=== PATIENT | female | born 1955 | race Caucasian/White ===

== ENCOUNTER 2022-02-02 10:34 | Inpatient (IN) | payer MEDICARE ==
[~2022-02-02] VITALS: Ht 160 cm; Wt 111.1 kg
[2022-02-02 10:35] VITALS: BP_SYST 141
--- NOTE | 2022-02-02 10:35 | NUR ---
Placed in room 4 . Placed on groundwater monitoring technician, blood pressure machine and pulse oximeter. To gown for exam. Side rails up.
--- NOTE | 2022-02-02 10:40 | NUR ---
PT BIBA FROM HOME FOR C/O ALTERED AND UNRESPONSIVE. PT'S LKWT PER EMS 2330 LAST NIGHT. PT HAS HX OF CVA WITH BLE WEAKNESS. PT ARRIVES AWAKE BUT UNRESPONSIVE TO COMMANDS OR VERBAL QUESTIONS. SHE DOES RESPOND TO PAIN. PT'S VSS HOWEVER PT IS HYPERTENSIVE ON ARRIVAL 147/100
[2022-02-02] MEDS ORDERED: NALOXONE HCL 2 MG/2 ML SYR IVP ONE (10:45)
--- NOTE | 2022-02-02 10:45 | NUR ---
ER DR. COLIN EXAMINING PT
--- NOTE | 2022-02-02 11:00 | NUR ---
PT ARRIVES WITH #18 TO LAC, PATENT
[2022-02-02 11:22] LABS: BASOPHILS % (AUTO) 0.6 % (0.0-2.0); EOSINOPHILS # (AUTO) 0.1 K/uL (0.0-0.4); EOSINOPHILS % (AUTO) 0.8 % (0.0-4.0); HEMATOCRIT 44.4 % (36-48); LYMPHOCYTES # (AUTO) 1.1 K/uL (1.0-5.5); MEAN CORPUSCULAR HEMOGLOBIN 31 pg (27-31); MEAN CORPUSCULAR HGB CONC 34 % (32-36); MEAN CORPUSCULAR VOLUME 92 fL (79.0-98.0); MONOCYTES # (AUTO) 0.6 K/uL (0.0-1.0); MONOCYTES % (AUTO) 7.4 % (1.7-9.3); NEUTROPHILS # (AUTO) 6.1 K/uL (1.8-7.7); NEUTROPHILS % (AUTO) 77.2 % (40.0-70.0); PLATELET COUNT (AUTO) 300 K/uL (130-430); RED BLOOD CELL COUNT(AUTO) 4.82 MIL/uL (4.2-6.2); RED CELL DISTRIBUTION WIDTH 16.4 % (9.0-15.0); WHITE BLOOD COUNT (AUTO) 7.9 K/uL (4.8-10.8)
--- NOTE | 2022-02-02 11:30 | NUR ---
# 16 FR Smart catheter with use of sterile technique. Immediate return of 100 cc CLOUDY, YELLOW urine noted. Bedside drainage bag placed below level of bladder. Urine sample collected and sent to lab. Pt tolerated procedure WELL. Patient unable to toilet self.
--- NOTE | 2022-02-02 11:46 | NUR ---
PT YELLED OUT "HELP", UPON ENTERING THE ROOM, PT STATES SHE IS COLD AND WOULD LIKE SOME BLANKETS. PT ALSO STATES SHE IS IN THE HOSPITAL WHEN ASKED AND KNOWS HER NAME. STATES SHE LIVES WITH HER DAUGHTER AND IS BED BOUND AT HOME FROM PREVIOUS STROKE.
[2022-02-02 11:49] LABS: BILIRUBIN,URINE NEGATIVE (NEGATIVE); BLOOD, URINE 1+ (NEGATIVE); CLARITY/URINE CLEAR (CLEAR); COLOR,URINE YELLOW (YELLOW); GLUCOSE,URINE 3+ (NEGATIVE); KETONES,URINE NEGATIVE (NEGATIVE); LEUKOCYTE ESTERASE ,URINE 1+ (NEGATIVE); NITRITE, URINE NEGATIVE (NEGATIVE); PROTEIN URINE TRACE (NEGATIVE); UROBILINOGEN,URINE 0.2 (0.2-1.0)
[2022-02-02 11:53] LABS: ANION GAP 1 (5-15); CHLORIDE 101 mmol/L (98-107); GLUCOSE 227 mg/dL (70-99); POTASSIUM 3.1 mmol/L (3.5-5.1); UREA NITROGEN, BLOOD 15 mg/dL (8-21)
[2022-02-02 11:58] LABS: ACETAMINOPHEN 1 ug/mL (1-30); ALANINE AMINOTRANSFERASE 34 U/L (12-78); ALBUMIN 2.6 g/dL (3.4-4.8); ASPARTATE AMINOTRANSFERASE 17 U/L (10-37); TOTAL BILIRUBIN 0.7 mg/dL (0.0-1.0)
[2022-02-02 12:03] LABS: BACTERIA,URINE RARE /HPF (None Seen)
[2022-02-02 12:04] LABS: MUCUS,URINE None Seen /LPF (None Seen); YEAST,URINE Moderate /HPF (None Seen)
[2022-02-02 12:15] LABS: GFR AFRICAN AMERICAN 128 mL/min (>90)
[2022-02-02 12:18] LABS: ALCOHOL, BLOOD < 3 mg/dL (<10)
[2022-02-02 12:22] LABS: BARBITURATE, URINE NEGATIVE (NEG <=200); BENZODIAZEPINE, URINE NEGATIVE (NEG <=150); CANNABINOID, URINE NEGATIVE (NEG <=50); COCAINE, URINE NEGATIVE (NEG <=150); METHAMPHETAMINES SCREEN,URINE NEGATIVE (NEG <=500); OPIATE, URINE NEGATIVE (NEG <=100); PHENCYCLIDINE SCREEN,URINE NEGATIVE (NEG <=25); UR TRICYCLIC ANTIDEPRESSANTS NEGATIVE (NEG <=300); URINE AMPHETAMINE NEGATIVE (NEG <=500); URINE METHADONE NEGATIVE (NEG <=200); URINE OXYCODONE SCREEN NEGATIVE (NEG <=100); URINE PROPOXYPHENE SCREEN NEGATIVE (NEG <=300)
[2022-02-02] MEDS ORDERED: NACL 0.9% 1,000 ML IV ONE (12:45)
--- NOTE | 2022-02-02 14:12 | NUR ---
Admit bed requested Patient will be admitted to care of . Admitted to TELE unit. Diagnosis UTI, ALOC Inpatient (Yes or No) YES Observation (Yes or No) NO Orientation concerns or request close to nursing station (Yes or No) NO Covid Status NEGATIVE On vent or bipap NO Isolation requirements NO Needs a sitter NO From Home (Yes or if No enter name of facility) HOME Requires Dialysis (Yes or No) NO Med Rec Completed (Yes of No) MEDS UNKNOWN AT THIS TIME
[2022-02-02] MEDS ORDERED: NACL 0.9% 1,000 ML IV SCH (14:15)
[2022-02-02] MEDS ORDERED: PIPERACILLIN/TAZO 3.375 GM in NS 50 ML IV ONE (14:15)
[2022-02-02] MEDS ORDERED: PIPERACILLIN/TAZOBACTAM 3.375 GM/VIAL (ZOSYN) IV ONE ×2 (14:20)
[2022-02-02 15:45] VITALS: BP_SYST 118
--- NOTE | 2022-02-02 16:10 | NUR ---
Patient will be admitted to care of Kit RN. Admitted to Tele unit. Will go to room 106B. Belongings list completed. Complete and up to date summary report printed. SBAR report to be given at bedside with opportunity for questions.
--- NOTE | 2022-02-02 16:15 | NUR ---
ADMISSION: PATIENT ADMITTED TO ROOM 106N FROM ER. PATIENT IS AAOX4 BUT DROWSY/SLEEPY. ABLE TO MAKE NEEDS KNOWN. EXPLAINED POC AND PATIENT VERBALIZED UNDERSTANDING. DENIES PAIN OR DISTRESS AT THIS TIME. IV TO THE LAC 18G. F/C DRAINING TO GRAVITY. ON 3L NC AT 90%. ADMITTED FOR UTI, ALOC. HX, CVA, COPD, PNA, AND CHRONIC PAIN. PARALYZE IN BOTH LOWER EXT. SID TO MOVE BUA (WEAK). BED IN LOW AND LOCK POSITION. BED ALARM ON. CALL LIGHT WITHIN REACH. STABLE CONDITION AT THIS TIME.
[2022-02-02] MEDS ORDERED: PIPERACILLIN/TAZO 3.375/DEX-IS 50 ML IV SCH (18:00)
--- NOTE | 2022-02-02 18:50 | NUR ---
CLOSING NOTES: PATIENT IS RESTING IN BED QUIETLY, ASLEEP. NO ADDITIONAL DISTRESS NOTED. ALL NEEDS MET. STABLE AT THIS TIME.
--- NOTE | 2022-02-02 19:15 | NUR ---
OPENING NOTE RECEIVED REPORT FROM DAYSHIFT NURSE. PATIENT RECEIVED LYING IN BED. NO S/S OF ACUTE DISTRESS. BREATHING EVEN AND UNLABORED. HOB RAISED, NASAL CANULA ATTACHED PROPERLY, ON 3L OF OXYGEN. IVF INFUSING WELL, IV SITE PATENT, NO SIGNS OF INFILTRATION OR INFECTION NOTED. JACKSON ATTACHED, SECURED, AND DRAINING BY GRAVITY. CALL LIGHT WITH PATIENT. BED ALARM ON. BED IS LOCKED AND AT LOWEST POSITION. WILL CONTINUE TO MONITOR.
[2022-02-02] MEDS ORDERED: POTASSIUM CHLORIDE 20 MEQ TAB.PRT.SR PO ONE (19:30)
[2022-02-02 20:00] VITALS: BP_SYST 125
--- NOTE | 2022-02-02 20:10 | NUR ---
AT BEDSIDE DR COREY AT BEDSIDE, ASSESSING PATIENT.
[2022-02-02] MEDS ORDERED: LevALBUTEROL HCL 1.25 MG/0.5 ML *CONC.* VIAL.NEB (XOPENEX CONC.) INH PRN (20:30)
[2022-02-02 21:03] VITALS: BP_SYST 134
[2022-02-02] MEDS: LevALBUTEROL HCL 1.25 MG/0.5 ML *CONC.* VIAL.NEB (XOPENEX CONC.) INH SCH (21:20)
[2022-02-02] MEDS: INSULIN REGULAR, HUMAN 100 UNITS/ML, 10 ML VIAL (humuLIN R) SUBCUT PRN (21:48)
[2022-02-02] MEDS: ENOXAPARIN SODIUM 40 MG/0.4 ML SYRINGE SUBCUT SCH (21:48)
[2022-02-02] MEDS ORDERED: KCL 20 mEq in D5/0.45NS 1000mL 1,000 ML IV ONE (22:52)
[2022-02-02] MEDS ORDERED: CEFEPIME 1 GM/VIAL (MAXIPIME) ONE (22:53)
[2022-02-02] MEDS: KCL 20 mEq in D5/0.45NS 1000mL 1,000 ML IV SCH (23:43)
[2022-02-03] MEDS ORDERED: CEFEPIME 1 GM/DEXT-ISO-OSM 50 ML IV ONE
[2022-02-03] MEDS: LevALBUTEROL HCL 1.25 MG/0.5 ML *CONC.* VIAL.NEB (XOPENEX CONC.) INH SCH ×4 (01:22→20:07)
--- NOTE | 2022-02-03 05:22 | NUR ---
Consultation Paged Reason for Consultation: chf Was consult called: Y Person who was notified: Johanne Consulting Physician: Dr. Krishna Ordering Physician: Dr. Oliveira
[2022-02-03] MEDS: INSULIN REGULAR, HUMAN 100 UNITS/ML, 10 ML VIAL (humuLIN R) SUBCUT PRN ×4 (05:54→21:31)
[2022-02-03 06:13] VITALS: BP_SYST 128
--- NOTE | 2022-02-03 06:15 | NUR ---
CLOSING NOTE PATIENT IN BED, RESTING, EYES CLOSED, NO S/S OF ACUTE DISTRESS. BREATHING EVEN AND UNLABORED. HOB RAISED, NASAL CANULA ATTACHED PROPERLY, ON 2L OF OXYGEN. IVF INFUSING WELL, IV SITE PATENT, NO SIGNS OF INFILTRATION OR INFECTION NOTED. JACKSON ATTACHED, SECURED, AND DRAINING BY GRAVITY. ALL NEEDS MET THROUGHOUT SHIFT. FALL AND SAFETY PRECAUTIONS MAINTAINED THROUGHOUT SHIFT. WILL CONTINUE TO MONITOR UNTIL PATIENT CARE IS ENDORSED TO ONCOMING DAYSHIFT NURSE.
[2022-02-03 06:22] LABS: INR 0.9 (0.8-1.2); PROTHROMBIN TIME 9.7 SECS (9.5-12.5)
[2022-02-03 06:28] LABS: BASOPHILS % (AUTO) 0.5 % (0.0-2.0); EOSINOPHILS # (AUTO) 0.1 K/uL (0.0-0.4); EOSINOPHILS % (AUTO) 1.1 % (0.0-4.0); HEMATOCRIT 42.1 % (36-48); HEMOGLOBIN 14.2 g/dL (12.0-16.0); LYMPHOCYTES # (AUTO) 0.9 K/uL (1.0-5.5); MEAN CORPUSCULAR HEMOGLOBIN 31 pg (27-31); MEAN CORPUSCULAR HGB CONC 34 % (32-36); MEAN CORPUSCULAR VOLUME 93 fL (79.0-98.0); MONOCYTES # (AUTO) 0.5 K/uL (0.0-1.0); MONOCYTES % (AUTO) 5.9 % (1.7-9.3); NEUTROPHILS # (AUTO) 6.8 K/uL (1.8-7.7); NEUTROPHILS % (AUTO) 81.5 % (40.0-70.0); PLATELET COUNT (AUTO) 250 K/uL (130-430); RED BLOOD CELL COUNT(AUTO) 4.54 MIL/uL (4.2-6.2); RED CELL DISTRIBUTION WIDTH 16.1 % (9.0-15.0); WHITE BLOOD COUNT (AUTO) 8.4 K/uL (4.8-10.8)
[2022-02-03 06:52] LABS: CALCIUM 9.1 mg/dL (8.4-11.0); CREATININE 0.36 mg/dL (0.55-1.30); POTASSIUM 4.1 mmol/L (3.5-5.1)
--- NOTE | 2022-02-03 07:04 | NUR ---
received report from endorsing night stocker RN for continuity of care, patient lying on bed with an IVF of KCL 20 mEQ in D5 1/2 NS @ 60 ml/hr, vital signs taken and recorder blood pressure 125/67, heart rate 78, oxygen saturation 98 and temperature 97.6, Smart catheter in place, draining to gravity, no signs of acute distress noted at this time, fall and safety precaution in place, will continue to monitor.
[2022-02-03] MEDS: CEFEPIME 1 GM in D5W 50 ML IV SCH ×2 (09:11→21:26)
--- NOTE | 2022-02-03 09:30 | NUR ---
RT NOTE: 929 Patient decreased to 1lpm nasal cannula per Dr Krishna and per ABSunita. Recommended BiPAP. RN made aware of changes. Will continue to monitor pt. Addendum: 02/03/22 at 0950 by Leticia Michael RT Amended: Links added.
[2022-02-03 12:00] VITALS: BP_SYST 130
[2022-02-03] MEDS: KCL 20 mEq in D5/0.45NS 1000mL 1,000 ML IV SCH (13:25)
--- NOTE | 2022-02-03 14:58 | NUR ---
CONSULTATION PAGED/CALLED Reason for Consultation: [] COPD Person Who was Notified: [] LUZ MARIA Consulting Physician: [] DR GREENE Fighter Pilot Specialty: [] PULMO Ordering Physician: [] DR GILLESPIE
--- NOTE | 2022-02-03 16:13 | NUR ---
PICC LINE @ RIGHT UPPER EXTREMITY INSERTED @ 1613.
[2022-02-03 17:00] VITALS: BP_SYST 129
--- NOTE | 2022-02-03 19:12 | NUR ---
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
--- NOTE | 2022-02-03 19:15 | NUR ---
OPENING NOTE BEDSIDE REPORT RECEIVED FROM DAYSHIFT NURSE. PATIENT RECEIVED AWAKE, ALERT, NO S/S OF ACUTE DISTRESS. PATIENT DENIES PAIN. BREATHING EVEN AND UNLABORED. HOB RAISED. IVF INFUSING WELL, IV SITE PATENT, NO SIGNS OF INFILTRATION OR INFECTION NOTED. JACKSON ATTACHED, SECURED, AND DRAINING BY GRAVITY. CALL LIGHT WITH PATIENT. BED ALARM ON. BED IS LOCKED AND AT LOWEST POSITION. WILL CONTINUE TO MONITOR.
[2022-02-03 20:00] VITALS: BP_SYST 103
[2022-02-03] MEDS: ENOXAPARIN SODIUM 40 MG/0.4 ML SYRINGE SUBCUT SCH (21:27)
[2022-02-03] MEDS: METHYLPREDNISOLONE SOD SUCC 40 MG/ML VIAL IVP SCH (21:27)
--- NOTE | 2022-02-04 | NUR ---
CALLED DR JOSE MIGUEL LEE MADE AWARE, PATIENT IS AGITATED, CONTINUOUSLY YELLING, WANTING TO GO HOME, PICC LINE AND IV REMOVED. CATHETER FULLY INTACT, NO SIGNS OF ACTIVE BLEEDING. ORDERS GIVEN, WILL CARRY OUT.
[2022-02-04] MEDS ORDERED: HALOPERIDOL LACTATE 5 MG/ML VIAL IM ONE (00:45)
[2022-02-04] MEDS: LevALBUTEROL HCL 1.25 MG/0.5 ML *CONC.* VIAL.NEB (XOPENEX CONC.) INH SCH ×4 (01:00→20:23)
[2022-02-04] MEDS: KCL 20 mEq in D5/0.45NS 1000mL 1,000 ML IV SCH ×2 (06:17→22:24)
[2022-02-04] MEDS: METHYLPREDNISOLONE SOD SUCC 40 MG/ML VIAL IVP SCH ×3 (06:17→20:47)
[2022-02-04] MEDS: INSULIN REGULAR, HUMAN 100 UNITS/ML, 10 ML VIAL (humuLIN R) SUBCUT PRN ×4 (06:18→22:23)
[2022-02-04 06:19] LABS: CALCIUM 9.3 mg/dL (8.4-11.0); CREATININE 0.57 mg/dL (0.55-1.30); POTASSIUM 4.5 mmol/L (3.5-5.1)
[2022-02-04 06:33] LABS: ALBUMIN 2.3 g/dL (3.4-4.8); THYROID STIMULATING HORMONE 0.75 uIu/mL (0.36-3.74); TOTAL BILIRUBIN 0.3 mg/dL (0.0-1.0)
--- NOTE | 2022-02-04 06:42 | NUR ---
CLOSING NOTE PATIENT IN BED, RESTING, EYES CLOSED, NO S/S OF ACUTE DISTRESS. BREATHING EVEN AND UNLABORED. HOB RAISED, NASAL CANULA ATTACHED PROPERLY, ON 2L OF OXYGEN. IVF INFUSING WELL, IV SITE PATENT, NO SIGNS OF INFILTRATION OR INFECTION NOTED. SKIN WARM AND DRY TO TOUCH, NO SIGNS OF HYPOGLYCEMIA NOTED. JACKSON ATTACHED, SECURED, AND DRAINING BY GRAVITY. ALL NEEDS MET THROUGHOUT SHIFT. FALL, SAFETY PRECAUTIONS MAINTAINED THROUGHOUT SHIFT. WILL CONTINUE TO MONITOR UNTIL PATIENT CARE IS ENDORSED TO ONCOMING DAYSHIFT NURSE.
[2022-02-04 07:07] LABS: BASOPHILS % (AUTO) 0.4 % (0.0-2.0); EOSINOPHILS % (AUTO) 0.1 % (0.0-4.0); HEMOGLOBIN 13.9 g/dL (12.0-16.0); LYMPHOCYTES # (AUTO) 0.5 K/uL (1.0-5.5); LYMPHOCYTES % (AUTO) 7.5 % (20.5-51.5); MEAN CORPUSCULAR HEMOGLOBIN 32 pg (27-31); MEAN CORPUSCULAR HGB CONC 34 % (32-36); MEAN CORPUSCULAR VOLUME 94 fL (79.0-98.0); MONOCYTES # (AUTO) 0.2 K/uL (0.0-1.0); MONOCYTES % (AUTO) 2.4 % (1.7-9.3); NEUTROPHILS # (AUTO) 5.7 K/uL (1.8-7.7); NEUTROPHILS % (AUTO) 89.6 % (40.0-70.0); PLATELET COUNT (AUTO) 251 K/uL (130-430); RED BLOOD CELL COUNT(AUTO) 4.36 MIL/uL (4.2-6.2); WHITE BLOOD COUNT (AUTO) 6.4 K/uL (4.8-10.8)
--- NOTE | 2022-02-04 07:15 | NUR ---
Patient stable; asleep at this time with no distress noted.
--- NOTE | 2022-02-04 07:28 | NUR ---
Patient stable; resting comfortably in bed with breathing treatment in progress; Leticia, RT at bedside.
[2022-02-04] MEDS: CEFEPIME 1 GM in D5W 50 ML IV SCH ×2 (08:03→20:46)
--- NOTE | 2022-02-04 08:04 | NUR ---
Scheduled IV abx given per order. Patient eating breakfast with JIMENA Miranda at bedside.
[2022-02-04 08:05] VITALS: BP_SYST 105
--- NOTE | 2022-02-04 08:42 | NUR ---
Dietitian Recommendations * Continue mechanical soft diet as ordered * Staff to continue to provide feeding assistance * Consider additional of basal insulin to promote euglycemia Please see nutrition assessment for details. RICHY DREW
--- NOTE | 2022-02-04 10:40 | NUR ---
Patient resting quietly in bed with no distress noted.
--- NOTE | 2022-02-04 11:27 | NUR ---
Patient stable with Dr. Ramirez at bedside.
--- NOTE | 2022-02-04 11:39 | NUR ---
Checked blood sugar: 306 mg/dl - will cover per sliding scale. Addendum: 02/04/22 at 1144 by Nancy Amos RN Covered per sliding scale: 8 units Addendum: 02/04/22 at 1148 by Nancy Amos RN Emptied 300mls of cloudy, yellow urine
[2022-02-04 12:00] VITALS: BP_SYST 104
--- NOTE | 2022-02-04 13:06 | NUR ---
Scheduled IVP medication given per order. Patient stable; resting comfortably in bed with no distress noted and no complaint of any pain.
--- NOTE | 2022-02-04 15:20 | NUR ---
Patient resting comfortably and quietly in bed with no distress noted and no complaint of pain at this time.
[2022-02-04 16:18] VITALS: BP_SYST 106
--- NOTE | 2022-02-04 18:07 | NUR ---
Checked blood sugar: 249 mg/dl - will cover per sliding scale. Addendum: 02/04/22 at 1919 by Nancy Amos RN Covered per sliding scale: 4 units. Patient stable throughout shift.
--- NOTE | 2022-02-04 20:00 | NUR ---
RECEIVED REPORT FROM DAYSMSFT NURSE. PATIENT RECEIVED LYING IN BED. NO S/S OF ACUTE DISTRESS. BREATHING EVEN AND UNLABORED. HOB RAISED, NASAL CANULA ATTACHED PROPERLY, ON 3L OF OXYGEN. IVF INFUSING WELL, IV SITE PATENT, NO SIGNS OF INFILTRATION OR INFECTION NOTED. JACKSON ATTACHED, SECURED, AND DRAINING BY GRAVITY. CALL LIGHT WITH PATIENT. BED ALARM ON. BED IS LOCKED AND AT LOWEST POSITION. WILL CONTINUE TO MONITOR.
[2022-02-04 20:13] VITALS: BP_SYST 108
[2022-02-04 20:20] VITALS: BP_SYST 108
[2022-02-04] MEDS: ENOXAPARIN SODIUM 40 MG/0.4 ML SYRINGE SUBCUT SCH (20:47)
--- NOTE | 2022-02-04 21:35 | NUR ---
RT NOTES. WENT ON TO PT'S ROOM @ 1533 FOR BREATHING TX. NO DISTRESS NOTED. BS CLEAR, SPO2 97% ON 5L. AFTER TX I ASKED THE PT IF SHE WOULD LIKE TO BE PLACED ON BIPAP. SHE ASKED FOR HOW LONG THEN I SAID FOR LONG YOU CAN TOLERATE IT. PT ENDED UP REFUSING BIPAP. NO RESP. DISTRESS NOTED. WILL CONTINUE TO MONITOR.
[2022-02-05] VITALS (7 sets, daily range): BP systolic 112–119
--- NOTE | 2022-02-05 01:00 | NUR ---
RT NOTES WAS CALLED TO PTS ROOM DUE TO DIFFICULTY BREATHING. PLACED ON BIPAP 05/25 R14 30% @ 2345. PT TOLERATED WELL AND DIFFICULTY BREATHING CORRECTED. SPO2 97%. WAS THEN CALLED AGAIN TO PT'S ROOM @ 0040. PT DID NOT WANT TO BE ON BIPAP ANYMORE AND IS BACK ON NASAL CANNULA OF 4L. NO RESP. DISTRESS NOTED. WILL GIVEN 0100 TX SCHEDULED AND WILL CONTINUE TO MONITOR.
[2022-02-05] MEDS: LevALBUTEROL HCL 1.25 MG/0.5 ML *CONC.* VIAL.NEB (XOPENEX CONC.) INH SCH ×5 (01:24→20:22)
[2022-02-05] MEDS: METHYLPREDNISOLONE SOD SUCC 40 MG/ML VIAL IVP SCH ×3 (05:13→21:01)
[2022-02-05] MEDS: INSULIN REGULAR, HUMAN 100 UNITS/ML, 10 ML VIAL (humuLIN R) SUBCUT PRN ×4 (05:15→20:36)
[2022-02-05] MEDS: CEFEPIME 1 GM in D5W 50 ML IV SCH ×2 (08:22→20:33)
[2022-02-05] MEDS: KCL 20 mEq in D5/0.45NS 1000mL 1,000 ML IV SCH (13:59)
--- NOTE | 2022-02-05 19:30 | NUR ---
PM ASSESSMENT; -Pt is a/ox2, episode of forgetfulness noted. No s/s any pain,chest pain,sob,or any acute distress. IV site of left f/a patent,no s/s any infiltration noted. Smart cath w/ gravity drains yellow urine output. Fall precaution in place. Bed alarmed, side rails x3, call light w/in reach. Unable to discuss d/c cognitive limitation. Cont to monitor pt.
[2022-02-05] MEDS: ENOXAPARIN SODIUM 40 MG/0.4 ML SYRINGE SUBCUT SCH (20:33)
--- NOTE | 2022-02-05 20:36 | NUR ---
NOTES; BLOOD SUGAR= 8UNITS SUBCUT LEFT DELTOID GIVEN.
--- NOTE | 2022-02-05 22:12 | NUR ---
ROUNDS; -P awakes, resting in bed, dyspnea upon exertion while perineal care and sponge bath provided. Pt is forgetfulness. Pt has 3 L nc oxy continuously. Pt is incontinent of large soft yellow green stool. Pt tolerated fairly. Bed alarmed, side rails x3, call light w/in reach. Cont to monitor pt.
--- NOTE | 2022-02-06 | NUR ---
ROUNDS; Pt refused BIPAP TONIGHT PER JOSIAH-RT -Pt awakes, laying in bed comfortably. Pt has 3 L n/c oxy with a1rqq=97%. Gave snack and Shelton crackers. No s/s any acute distress noted. Bed alarmed, side rails x3, call light w/in reach. Cont to monitor pt.
[2022-02-06] MEDS: ACETAMINOPHEN 325 MG TABLET PO PRN ×3 (00:44→21:48)
--- NOTE | 2022-02-06 00:44 | NUR ---
PAIN MGMT; -Pt is c/o generalized pain,gave Tylenol po for pain. Will reassess pain level w/in an hour. Cont to monitor pt.
[2022-02-06 00:47] VITALS: BP_SYST 110
[2022-02-06] MEDS: LevALBUTEROL HCL 1.25 MG/0.5 ML *CONC.* VIAL.NEB (XOPENEX CONC.) INH SCH ×4 (01:00→20:06)
--- NOTE | 2022-02-06 02:12 | NUR ---
ROUNDS; -Pt awake, insomnia. Pt won't go to bed. No s/s any acute distress noted. Bed alarmed, side rails x3, call light w/in reach. Cont to monitor pt.
--- NOTE | 2022-02-06 04:00 | NUR ---
ROUNDS; -Pt is asleep now. No s/s any acute distress noted. Bed alarmed, side rails x3, call light w/in reach. Cont to monitor pt.
--- NOTE | 2022-02-06 05:51 | NUR ---
ROUNDS; INCONT OF BOWEL MOVT -Pt is incont of small pasty yellow bowel movt. PRovided perineal care,now pt is cleaned and dry. Pt has 3 L nc oxy continuously.Smart cath w/ gravity drain yellow urine 2000ml entire shift. Bed alarmed, side rails x3, call light w/in reach. Cont to monitor pt.
[2022-02-06] MEDS: METHYLPREDNISOLONE SOD SUCC 40 MG/ML VIAL IVP SCH ×3 (05:59→23:15)
[2022-02-06] MEDS: INSULIN REGULAR, HUMAN 100 UNITS/ML, 10 ML VIAL (humuLIN R) SUBCUT PRN ×4 (06:08→21:44)
--- NOTE | 2022-02-06 06:54 | NUR ---
CLOSING NOTES; -Pt awakes, resting in bed. Pt screams & yells most entire time. Pt has 3 L nc oxy. IV site of left f/a patent,no s/s any infiltration noted. Smart cath w/ gravity drains yellow urine output. Fall precaution in place. Bed alarmed, side rails x3, call light w/in reach. Will endorse to next nurse to cont care.
[2022-02-06 08:00] VITALS: BP_SYST 115
[2022-02-06] MEDS: CEFEPIME 1 GM in D5W 50 ML IV SCH ×2 (09:38→23:15)
[2022-02-06] MEDS: KCL 20 mEq in D5/0.45NS 1000mL 1,000 ML IV SCH (12:25)
--- NOTE | 2022-02-06 19:30 | NUR ---
OPENING NOTE PT IS LYING IN BED WITH EYES CLOSED YELLING OUT. PT IS A/O X 2-3. NO APPARENT SIGNS OF DISTRESS NOTED AT THIS TIME. BED IS IN LOWEST POSITION WITH FALL AND SAFETY PRECAUTIONS IN PLACE. CALL LIGHT WITHIN REACH. IV FLUIDS RUNNING ORDERED. JACKSON DRAINING TO GRAVITY. 2L NC
[2022-02-06 20:00] VITALS: BP_SYST 111
[2022-02-06] MEDS: ENOXAPARIN SODIUM 40 MG/0.4 ML SYRINGE SUBCUT SCH (21:47)
--- NOTE | 2022-02-07 00:27 | NUR ---
PT REMOVED BIPAP AND REFUSING TO PUT IT BACK ON PT EDUCATED ON IMPORTANCE OF WEARING BIPAP. PT REFUSED AND SAID " NO MORE"
[2022-02-07] MEDS: KCL 20 mEq in D5/0.45NS 1000mL 1,000 ML IV SCH (00:30)
[2022-02-07 00:43] VITALS: BP_SYST 93
[2022-02-07] MEDS: LevALBUTEROL HCL 1.25 MG/0.5 ML *CONC.* VIAL.NEB (XOPENEX CONC.) INH SCH ×4 (01:27→19:58)
[2022-02-07] MEDS: METHYLPREDNISOLONE SOD SUCC 40 MG/ML VIAL IVP SCH (06:33)
[2022-02-07] MEDS: INSULIN REGULAR, HUMAN 100 UNITS/ML, 10 ML VIAL (humuLIN R) SUBCUT PRN ×4 (06:37→23:08)
[2022-02-07 07:21] LABS: HEMATOCRIT 39.5 % (36-48); HEMOGLOBIN 13.3 g/dL (12.0-16.0); LYMPHOCYTES # (AUTO) 0.4 K/uL (1.0-5.5); LYMPHOCYTES % (AUTO) 6.4 % (20.5-51.5); MEAN CORPUSCULAR HEMOGLOBIN 32 pg (27-31); MEAN CORPUSCULAR HGB CONC 34 % (32-36); MEAN CORPUSCULAR VOLUME 94 fL (79.0-98.0); MONOCYTES # (AUTO) 0.3 K/uL (0.0-1.0); MONOCYTES % (AUTO) 5.4 % (1.7-9.3); NEUTROPHILS # (AUTO) 5.4 K/uL (1.8-7.7); NEUTROPHILS % (AUTO) 88.2 % (40.0-70.0); PLATELET COUNT (AUTO) 248 K/uL (130-430); RED BLOOD CELL COUNT(AUTO) 4.21 MIL/uL (4.2-6.2); RED CELL DISTRIBUTION WIDTH 15.6 % (9.0-15.0); WHITE BLOOD COUNT (AUTO) 6.1 K/uL (4.8-10.8)
[2022-02-07 07:31] LABS: CALCIUM 9.4 mg/dL (8.4-11.0); CREATININE 0.56 mg/dL (0.55-1.30); POTASSIUM 5.6 mmol/L (3.5-5.1)
[2022-02-07 08:00] VITALS: BP_SYST 118
--- NOTE | 2022-02-07 08:05 | NUR ---
CLOSING NOTE PT IS SITTING UP IN BED EATING BREAKFAST. NO APPARENT DISTRESS NOTED AT THIS TIME. BED IS IN LOWEST POSITION WITH FALL AND SAFETY PRECAUTIONS IN PLACE. CALL LIGHT IS WITH REACH. JACKSON DRAINING TO GRAVITY. NC AT 2L
[2022-02-07] MEDS: ACETAMINOPHEN 325 MG TABLET PO PRN ×2 (08:52→08:53)
[2022-02-07] MEDS: CEFEPIME 1 GM in D5W 50 ML IV SCH ×2 (10:57→22:15)
[2022-02-07 11:39] VITALS: BP_SYST 128
--- NOTE | 2022-02-07 12:33 | NUR ---
Nutrition F/U RD reviewed patient's current EMR, including diet history, physician notes, nursing notes, pertinent labs/medications/procedures, care trends, and care activity. Short note written d/t high RD workload. Current Diet Order/Nutrition Support: Mechanical Soft x 5 days, tolerating well Current PO intake (%): Good - 75% x 13 meals Last BM: Feb 07, 2022 x 1 Skin Integrity: Giancarlo 15: L/R chest dry scabs 02/07 2+ pitting edema BLE, BUE worsening Dietitian Recommendations * Continue mechanical soft diet with feeding assistance * Recommend adjusting insulin regimen for BG goal trending WNL Follow-up Moderate Risk - F/U 3-5 days, by Jan CC, MPH, RDN
[2022-02-07] MEDS ORDERED: SODIUM POLYSTYRENE SULFONATE 15 GM/60 ML UDBTL PO ONE (13:30)
--- NOTE | 2022-02-07 15:05 | NUR ---
Discharge Planning: DCP faxed pt referral to [facility] [phone] for home health and safety eval. DCP to follow up
--- NOTE | 2022-02-07 16:18 | NUR ---
DISCHARGE PLANNING Order for home health. Spoke with pt at bedside verified address correct on face sheet. Lives at home with dtr Amy Sheppard and has a caregiver that comes and assists her whenever needed. States that she is never left alone. Does not know any ph numbers and does not have her cell ph with her. States the ph on face sheet is her cell. States also has a son Albaro that lives in [place], does not know his number either. At home bedbound, cannot stand to transfer. Has hospital bed, elmer lift, wc, home O2(rechargable O2 tanks), BIPAP machine. Gets bed baths & uses diapers at home. States agreeable with home with home health, with no preference. Dtr or caregiver will shredder picker, if not them she will pay for [facility] [facility] transport home. States uses [employer] for Home O2. Called pt's cell & went straight to voicemail with mailbox full. No contact information in chart, no documentation from ambulance in chart. Called & spoke with Ameel at [facility], ph [phone], verified that pt does get home O2 thru them, a double use concentrator & portable O2 system, also has BIPAP at home. Has emergency contact: son Albaro ph [phone] and caregiver Misty Payton ph [phone], does not have dtr's #. Spoke with pt and ok to call son, caregiver or dtr if able to get #. Called son Albaro and left [facility] [place], [place], called & spoke with caregiver Misty, states that family was wanting pt to go to SNF for short term before discharge home. Gave me dtr's ph. Called & spoke with dtr Amy, prefer snf with no preference. If pt refuses snf would be ok to come back home with home health. Updateted admitting with contact info. Amy Sheppard(dtr) [phone] Albaro Sheppard (son)[phone] Misty Cain(caregiver)[phone]
[2022-02-07 16:23] VITALS: BP_SYST 123
[2022-02-07] MEDS: predniSONE 20 MG TABLET PO SCH (22:10)
[2022-02-07] MEDS: ENOXAPARIN SODIUM 40 MG/0.4 ML SYRINGE SUBCUT SCH (22:11)
[2022-02-08] VITALS (8 sets, daily range): BP systolic 116–142
[2022-02-08] MEDS: LevALBUTEROL HCL 1.25 MG/0.5 ML *CONC.* VIAL.NEB (XOPENEX CONC.) INH SCH ×4 (01:58→20:21)
[2022-02-08] MEDS: INSULIN REGULAR, HUMAN 100 UNITS/ML, 10 ML VIAL (humuLIN R) SUBCUT PRN ×4 (06:47→21:38)
--- NOTE | 2022-02-08 07:30 | NUR ---
OPENING NOTES: RECEIVED FROM HOME CARE CHAPLAIN RN. PATIENT RESTING IN BED. BREATHING EVEN AND NON LABORED TO O2 AT 2L/NC. JACKSON CATHETER IN PLACED AND DRAINING BY GRAVITY. FALL AND SAFETY MEASURES REINFORCED. BED LOCKED,ALARM ON AND IN LOWEST POSITION. CALL LIGHT WITHIN REACH.
[2022-02-08 07:33] LABS: ALBUMIN 2.1 g/dL (3.4-4.8); CALCIUM 9.6 mg/dL (8.4-11.0); CREATININE 0.55 mg/dL (0.55-1.30); TOTAL BILIRUBIN 0.2 mg/dL (0.0-1.0)
[2022-02-08] MEDS: predniSONE 20 MG TABLET PO SCH ×2 (09:16→21:19)
[2022-02-08] MEDS: CEFEPIME 1 GM in D5W 50 ML IV SCH ×2 (09:16→21:18)
--- NOTE | 2022-02-08 10:11 | NUR ---
DISCHARGE PLANNING Called & spoke with Dr Oliveira to discuss dc planning. Plan for dc to SNF today, gave dc planning order for SNF & PT Eval. Spoke with pt at bedside & discussed dc planning. Is agreeable with short term SNF with no preference. Updated dc regional planner.
--- NOTE | 2022-02-08 11:09 | NUR ---
Discharge Planning: DCP followed up [facility] [phone] for home health and safety eval pt accepted. DCP faxed pt pt referral to [facility] [phone]. DCP to follow up
--- NOTE | 2022-02-08 12:00 | NUR ---
RN NOTE: PATIENT RESTING IN BED. ACCUCHECK DONE 221. INSULIN COVERAGE GIVEN ORDERED. FALL AND SAFETY MEASURES PROVIDED. FAMILY AT BEDSIDE.
--- NOTE | 2022-02-08 12:35 | NUR ---
Dietitian Recommendations * Continue mechanical soft diet with feeding assistance * Recommend adjusting insulin regimen for BG goal trending WNL Please refer to Nutrition F/U for details, thanks! CC, MPH, RDN
--- NOTE | 2022-02-08 18:57 | NUR ---
CLOSING NOTE: PATIENT RESTING IN BED. NO S/S OF ACUTE DISTRESS NOTED. DENIES ANY DISCOMFORT AT THIS TIME. FALL AND SAFETY MEASURES PROVIDED. NEEDS MET THROUGHOUT SHIFT. ENDORSED TO SALES REPRESENTATIVE METALS RN.
[2022-02-08] MEDS: ENOXAPARIN SODIUM 40 MG/0.4 ML SYRINGE SUBCUT SCH (21:19)
[2022-02-09 00:42] VITALS: BP_SYST 102
[2022-02-09 04:44] VITALS: BP_SYST 115
[2022-02-09] MEDS: LevALBUTEROL HCL 1.25 MG/0.5 ML *CONC.* VIAL.NEB (XOPENEX CONC.) INH SCH ×4 (05:20→19:38)
--- NOTE | 2022-02-09 07:18 | NUR ---
Opening Note: Report rcvd from outgoing NOC RN, all cares assumed.
--- NOTE | 2022-02-09 07:30 | NUR ---
OPENING NOTE Patient resting in bed with eyes closed, no sign of distress or pain. Nasal cannula in place on 2L. Smart catheter is patent and draining to gravity. All needs met at this time and safety checks made.
[2022-02-09 08:00] VITALS: BP_SYST 121
[2022-02-09] MEDS: CEFEPIME 1 GM in D5W 50 ML IV SCH ×2 (09:00→14:20)
[2022-02-09] MEDS: predniSONE 20 MG TABLET PO SCH ×2 (09:29→21:45)
--- NOTE | 2022-02-09 10:49 | NUR ---
IV ACCESS IV on right wrist became infiltrated; removed, intact, and no active bleeding. Attempted to start a new IV but was unable to do so successfully. Paged for orders.
[2022-02-09] MEDS: INSULIN REGULAR, HUMAN 100 UNITS/ML, 10 ML VIAL (humuLIN R) SUBCUT PRN ×3 (12:06→21:48)
[2022-02-09 12:45] VITALS: BP_SYST 109
--- NOTE | 2022-02-09 14:53 | NUR ---
Patient was denied SNF placement by Philip at [phone]-she has completed IV ABX-If the MD wants a peer to peer reconsideration, he has until noon 02/10 to call [phone]
--- NOTE | 2022-02-09 16:23 | NUR ---
Discharge Planning: DCP followed up on pt referral to [facility] [phone] will still , [employer] declined pt going to SNF
[2022-02-09 16:52] VITALS: BP_SYST 118
--- NOTE | 2022-02-09 19:44 | NUR ---
CLOSING NOTE Patient resting in bed with respiratory at bedside for breathing treatment. No sign of distress and patient denies pain. Smart catheter is patent and draining clear yellow urine to gravity. Patient was turned q2h to offload weight throughout shift. All needs met at this time and safety checks made. Endorsed to night nurse nurse.
[2022-02-09 21:05] VITALS: BP_SYST 110
[2022-02-09] MEDS: ENOXAPARIN SODIUM 40 MG/0.4 ML SYRINGE SUBCUT SCH (21:47)
--- NOTE | 2022-02-09 22:02 | NUR ---
RT NOTES PLACED PT ON BIPAP 05/25 BACK UP RATE OF 16 30% FIO2 @2130. BS CLEAR BILATERALLY WITH CHEST RISE. NO RESP. DISTRESS NOTED, PT TOLERATING WELL. WILL CONTINUE TO MONITOR. RN NOTIFIED.
[2022-02-10 00:09] VITALS: BP_SYST 115
[2022-02-10] MEDS: LevALBUTEROL HCL 1.25 MG/0.5 ML *CONC.* VIAL.NEB (XOPENEX CONC.) INH SCH ×4 (01:13→20:12)
--- NOTE | 2022-02-10 02:19 | NUR ---
RT NOTES @0130 PT TOOK OFF BIPAP AND DIDN'T WANT TO BE ON IT ANY LONGER. PUT NASAL CANNULA BACK ON AT 1L. SPO2 96% NO RESP. DISTRESS NOTED. WILL CONTINUE TO MONITOR.
--- NOTE | 2022-02-10 07:20 | NUR ---
PHYSICAL THERAPY CO-SIGN The Physical Therapy Progress Notes documented by Separator Inserter have been reviewed. Reviewed/Co-Signed by: Gregorio Stiles Documentation Done by: DARIAN BENITEZ PTA Addendum: 02/10/22 at 0721 by Gregorio Stiles PT Amended: Links added.
[2022-02-10 08:00] VITALS: BP_SYST 118
--- NOTE | 2022-02-10 08:47 | NUR ---
Spoke w/ patient's daughter, Wkgfgsd-[phone]. She will be home at 7:30 PM today to accept her mother at home. The address is [address] [place] [address]. Please call her before transporting patient to home.
[2022-02-10] MEDS: predniSONE 20 MG TABLET PO SCH (09:44)
[2022-02-10 12:00] VITALS: BP_SYST 108
--- NOTE | 2022-02-10 12:36 | NUR ---
Discharge Planning: [facility] arranged transport with [facility] [phone] 8:00pm BLS to home, dasia Reyes-[phone]. The [place] is [id number] [place] [id number]. [facility] made CM and nurse aware, patient packet taken to nurse station. Disposition 01 Addendum: 02/10/22 at 1242 by Ally WARREN [facility] [phone] will start care 02/12/2022 [facility] faxed up dated clinicals to home health Addendum: 02/10/22 at 1242 by Ally San DP Disposition 03
[2022-02-10] MEDS: INSULIN REGULAR, HUMAN 100 UNITS/ML, 10 ML VIAL (humuLIN R) SUBCUT PRN ×2 (13:33→18:29)
[2022-02-10 16:00] VITALS: BP_SYST 121
[2022-02-10 16:34] VITALS: BP_SYST 139
--- NOTE | 2022-02-10 19:33 | NUR ---
1830 SPOKE TO DAUGHTER Ric. SHE IS HOME AND IS WAITING FOR HER MOTHER TO ARRIVE
[2022-02-10 20:00] VITALS: BP_SYST 134
--- NOTE | 2022-02-10 23:25 | NUR ---
PATIENT WAS DC AT 2120, PICC LINE TO RIGHT UPPER ARM DC'D, PATIENT TOLERATED WELL, TELEMETRY BOX REMOVED AND GIVEN TO MT. PATIENT LEFT FACILITY WITH ALL PERSONAL BELONGING VIA AMBULANCE AND 2 TRANSPORT STAFF. PATIENT HAD NO S/S OF PAIN OR DISTRESS NOTED AT TIME OF DISCHARGE. PATIENT'S DAUGHTER, LUZ MARIA, WAS CALLED PRIOR TO DISCHARGE TO VERIFY THAT SOMEONE WOULD BE AT THE RESIDENCE WHEN PATIENT ARRIVED.
== END 2022-02-10 21:20 | DRG 193 ==
LOC: SED 10:34 → STU 14:13
PROVIDERS: ADMIT Family Medicine; ATTEND Family Medicine
PROC: 5A09357 Assistance with Respiratory Ventilation, Less than 24 Consecutive Hours, Continuous Positive Airway Pressure (ICD-10-PCS; principal; 2022-02-05)
PROC: 5A09357 Assistance with Respiratory Ventilation, Less than 24 Consecutive Hours, Continuous Positive Airway Pressure (ICD-10-PCS; 2022-02-06)
PROC: 5A09357 Assistance with Respiratory Ventilation, Less than 24 Consecutive Hours, Continuous Positive Airway Pressure (ICD-10-PCS; 2022-02-09)
PROC: 02HV33Z Insertion of Infusion Device into Superior Vena Cava, Percutaneous Approach (ICD-10-PCS; 2022-02-09)
DX: J18.9 Pneumonia, unspecified organism (principal); G93.41 Metabolic encephalopathy; I50.23 Acute on chronic systolic (congestive) heart failure; J96.02 Acute respiratory failure with hypercapnia; N39.0 Urinary tract infection, site not specified; J44.1 Chronic obstructive pulmonary disease with (acute) exacerbation; E46 Unspecified protein-calorie malnutrition; E87.4 Mixed disorder of acid-base balance; Z68.41 Body mass index [BMI] 40.0-44.9, adult; Z20.822 Contact with and (suspected) exposure to COVID-19; E66.01 Morbid (severe) obesity due to excess calories; Z74.01 Bed confinement status; Z87.891 Personal history of nicotine dependence; Z86.73 Personal history of transient ischemic attack (TIA), and cerebral infarction without residual deficits; Z79.891 Long term (current) use of opiate analgesic
CPT/HCPCS: 36415; 36600; 70450-TC; 71045; 76376; 80048; 80053; 80307; 81000; 82803-TC; 82962; 83036; 83605; 83690; 83735; 83880; 84443; 84484; 85025; 85610-TC; 85730-TC; 87040; 87086; 93005; 93306; 94640; 94660; 94760; 96361; 96365; 96375; 97110-GP; 99285; G0378; G0480; G0481; G0482; J0692; J1030; J1630; J1650; J1815; J2310; J2543; J7060; J7512; J7612